=== PATIENT | female | born 1975 | race Two or more races ===

== ENCOUNTER 2022-04-16 09:23 | Emergency (ER) | payer OTHER ==
[~2022-04-16] VITALS: Ht 185.4 cm; Wt 153.8 kg
[2022-04-16] MEDS ORDERED: ENTRESTO 97 MG1 EACH (09:44)
[2022-04-16] MEDS ORDERED: SIMVASTATIN5 MG (09:45)
[2022-04-16] MEDS ORDERED: CARVEDILOL ER40 MG (09:45)
[2022-04-16] MEDS ORDERED: XIGDUO XR 5 MG1 EAC1 (09:46)
[2022-04-16] MEDS ORDERED: TRESIBA100 UNIT/1 (09:46)
[2022-04-16] MEDS ORDERED: ALDACTONE50 MG (09:46)
[2022-04-16] MEDS ORDERED: ECOTRIN81 MG (09:46)
[2022-04-16] MEDS ORDERED: OZEMPIC1 MG/0.71 (09:47)
[2022-04-16] MEDS ORDERED: FISH OIL 1,0001 EAC3 (09:48)
== END 2022-04-16 15:38 | disposition home or self-care (01) ==
LOC: ER 09:23
DX: U07.1 COVID-19 (principal); Z88.0 Allergy status to penicillin; Z88.5 Allergy status to narcotic agent

== ENCOUNTER 2022-04-19 11:00 | Outpatient (CLI) | payer OTHER ==
[~2022-04-19 11:00] MED LIST: ALDACTONE50 MG; CARVEDILOL ER40 MG; ECOTRIN81 MG; ENTRESTO 97 MG1 EACH; FISH OIL 1,0001 EAC3; OZEMPIC1 MG/0.71; SIMVASTATIN5 MG; TRESIBA100 UNIT/1; XIGDUO XR 5 MG1 EAC1
== END 2022-04-19 12:00 | disposition home or self-care (01) ==
LOC: ASH CLINIC 11:00
PROVIDERS: ATTEND Emergency Medicine
DX: U07.1 COVID-19 (principal)